=== PATIENT | female | born 1985 | race Caucasian/White ===

== ENCOUNTER 2021-01-24 18:50 | Emergency (ER) | payer BC ==
[~2021-01-24] VITALS: Ht 175.3 cm; Wt 77.3 kg
[2021-01-24 19:00] VITALS: BP 130/78
--- NOTE | 2021-01-24 20:08 | PHYS DOC ---
General Adult EDM: Chief Complaint: ANKLE PROBLEM HPI: HPI: Patient is a 35 year old female who presents with was changing the brakes on her 's car when somehow she rolled her ankle causing a snapping sound in her right lateral ankle. Patient states she has no pain unless she is standing or trying to move the leg. She states when she stands up she has sharp shooting pain up the leg. Review of Systems: Review of Systems: Constitutional: Denies fever or chills. [] Eyes: Denies change in visual acuity. [] HENT: Denies nasal congestion or sore throat. [] Respiratory: Denies cough or shortness of breath. [] Cardiovascular: Denies chest pain. + Right ankle edema. [] GI: Denies abdominal pain, nausea, vomiting, bloody stools or diarrhea. [] : Denies dysuria. [] Musculoskeletal: Denies back pain. + Right ankle joint pain. [] Integument: Denies rash. [] Neurologic: Denies headache, focal weakness or sensory changes. [] Endocrine: Denies polyuria or polydipsia. [] Lymphatic: Denies swollen glands. [] Psychiatric: Denies depression or anxiety. [] Heart Score: C/O Chest Pain: No Risk Factors: Risk Factors: DM, Current or recent (<one month) smoker, HTN, HLP, family history of CAD, obesity. Risk Scores: Score 0 - 3: 2.5% MACE over next 6 weeks - Discharge Home Score 4 - 6: 20.3% MACE over next 6 weeks - Admit for Clinical Observation Score 7 - 10: 72.7% MACE over next 6 weeks - Early Invasive Strategies Physical Exam: PE: Constitutional: Well developed, well nourished, no acute distress, non-toxic appearance. [] HENT: Normocephalic, atraumatic, bilateral external ears normal, oropharynx moist, no oral exudates, nose normal. [] Eyes: PERRLA, EOMI, conjunctiva normal, no discharge. [] Neck: Normal range of motion, no tenderness, supple, no stridor. [] Cardiovascular:Heart rate regular rhythm, no murmur [] Lungs & Thorax: Bilateral breath sounds clear to auscultation [] Abdomen: Bowel sounds normal, soft, no tenderness, no masses, no pulsatile masses. [] Skin: Warm, dry, no erythema, no rash. [] Back: No tenderness, no CVA tenderness. [] Extremities: Right lateral ankle tenderness, no cyanosis, no clubbing, right ankle ROM not intact due to pain and swelling, right ankle 2-3+ edema. [] Neurologic: Alert and oriented X 3, normal motor function, normal sensory function, no focal deficits noted. [] Psychologic: Affect normal, judgement normal, mood normal. [] EKG: EKG: [] Radiology/Procedures: Radiology/Procedures: [] Impression: [facility] [address] [address] IMAGING REPORT Signed PATIENT: JESSICA SPENCER BACCOUNT: [id number] : 1985 LOCATION: ER AGE: 35 SEX: F EXAM STATUS: REG ER ORD. PHYSICIAN: HAILE MATHEW APRN REASON: pain PROCEDURE: TIBIA FIBULA RIGHT INDICATION: Reason: right ankle pain after being rolled / Spl. Instructions: / History: COMPARISON: None. IMPRESSION: Right ankle: 3 views obtained. Soft tissue swelling overlying the lateral malleolus. Mildly displaced distal fibula fracture which is obliquely oriented with approximately 3 mm of lateral displacement. The medial ankle mortise clear space measures approximately 4 mm. The fibular fracture extends intra-articular. A tibiotalar joint effusion is identified. Right lower le views obtained. No definite additional fracture is seen more proximally. Electronically signed by: Ted Garcia MD (01/24/2021 8:39 PM) [id number] DICTATED and SIGNED BY: TED GARCIA MD DATE: 01/24/21 [id number] 0 Course & Med Decision Making: Course & Med Decision Making Pertinent Labs and Imaging studies reviewed. (See chart for details) See HPI. Alert and oriented x4. Ambulatory but limping on the right leg. Speaks in full clear sentences. Skin pink warm and dry. Right lateral ankle 2- 3+ swelling and slight tenderness to the lateral aspect of the ankle. Pedal pulses strong present. Cap refill is less than 2 seconds. No tenderness as I palpate the tib-fib. Patient can wiggle her toes. She states that the foot feels slightly numb but more tingly. She has slight movement at the ankle bone. There is no bruising. I have spoken to Dr. Borges with orthopedic and he states that he can see the patient on . He also asked for a stress view of the joint. Patient placed in a posterior and stirrup splint. No walking boot available. Patient is given crutches with education. Splint assessment: Neurovascularly intact post splint replacement with good fit. Patient's extremity symptoms have stabilized well they have been evaluated in the department and are appropriate for outpatient follow-up. No evidence of compartment syndrome, neurologic injury, vascular injury, open joint, open fracture, tendon laceration, or foreign body. [] Dragon Disclaimer: Dragon Disclaimer: This electronic medical record was generated, in whole or in part, using a voice recognition dictation system. Departure Departure Impression: Primary Impression: Fibula fracture Qualified Codes: S82.62XA - Displaced fracture of lateral malleolus of left fibula, initial encounter for closed fracture Disposition: 01 DC HOME SELF CARE/HOMELESS Condition: STABLE Referrals: NO PCP (PCP) MOHINI BORGES MD Patient Instructions: Crutch Use, Fibular Fracture, Adult, Treated Without Immobilization Additional Instructions: Follow-up with orthopedics as soon as possible. Call to make a appointment on as he states he can see you on . Use ice and elevation to help with swelling and pain. Take medication as prescribed with food and remember this medication will make you sleepy. If your foot begins to turn purple or it starts to feel too tight you can unwrap and rewrap the splint. Scripts Hydrocodone Bit/Acetaminophen (HYDROCODONE-APAP 5-325 ) 1 Tab Tablet 1 TAB PO PRN Q6HRS PRN for PAIN, #15 TAB 0 Refills Prov: HAILE MATHEW APRN 01/24/21 HAILE MATHEW APRN Jan 24, 2021 20:08
[2021-01-24] MEDS ORDERED: HYDROcodone/APAP 5/325MG 1 TAB TABLET PO ONE (20:15)
--- NOTE | 2021-01-24 20:41 | RAD ---
INDICATION: Reason: right ankle pain after being rolled / Spl. Instructions: / History: COMPARISON: None. IMPRESSION: Right ankle: 3 views obtained. Soft tissue swelling overlying the lateral malleolus. Mildly displaced distal fibula fracture which is obliquely oriented with approximately 3 mm of lateral displacement. The medial ankle mortise clear space measures approximately 4 mm. The fibular fracture extends intra- articular. A tibiotalar joint effusion is identified. Right lower le views obtained. No definite additional fracture is seen more proximally. Electronically signed by: Dylan Arrieta MD (01/24/2021 8:39 PM) [id number]
[2021-01-24] MEDS ORDERED: HYDR-2761 PO (20:58)
--- NOTE | 2021-01-24 22:32 | RAD ---
EXAM: gravity stress, ankle Right DATE: 01/24/2021 9:20 PM INDICATION: fracture Pain Ligamentous laxity COMPARISON: No prior FINDINGS/ IMPRESSION: Single stress view of the ankle is negative for asymmetrical widening of the joint line. Negative redman bluxation or dislocation. Previously noted oblique fracture of the distal fibula is evident. Electronically signed by: Brayan Gonzalez MD (01/24/2021 10:29 PM) MEGGAN
== END 2021-01-24 21:57 | disposition home or self-care (01) ==
LOC: ER 18:50
DX: S82.61XA Displaced fracture of lateral malleolus of right fibula, initial encounter for closed fracture (principal); R60.0 Localized edema; M25.571 Pain in right ankle and joints of right foot; X58.XXXA Exposure to other specified factors, initial encounter; Y93.89 Activity, other specified; Y92.89 Other specified places as the place of occurrence of the external cause; Y99.8 Other external cause status
CPT/HCPCS: 29515; 73590; 73610; 77071; 99284